=== PATIENT | female | born 1935 | race Hispanic/Latino ===

== ENCOUNTER 2017-04-19 12:52 | Emergency (ER) | payer MEDICARE ==
[2017-04-19 13:05] VITALS: BP 130/57; PULSE 87; RESP 16; TEMP 98.2; O2SAT 99
--- NOTE | 2017-04-19 14:02 | ED PDOC ---
HPI: Trauma/Fall - HPI Time Seen by Provider: 04/19/17 13:34 Chief Complaint (Nursing): Back Pain Chief Complaint (Provider): Neck Pain and Right Shoulder Pain History Per: Patient History/Exam Limitations: no limitations Onset/Duration Of Symptoms: Days (x1) Location Of Injury: Right: Shoulder Severity: None Associated Symptoms: denies: Dizziness, LOC Additional Complaint(s): 82 year old female presents to the ED post fall of right neck and right shoulder pain. The patient states that she slipped and fell causing injury to the shoulder and neck. Patient believes that tetanus is up to date. PMD: [facility] Past Medical History Reviewed: Historical Data, Nursing Documentation, Vital Signs Vital Signs: Last Vital Signs Temp 98.2 F 04/19/17 13:03 Pulse 87 04/19/17 13:03 Resp 16 04/19/17 13:03 BP 130/57 L 04/19/17 13:03 Pulse Ox 99 04/19/17 15:05 - Medical History PMH: Diabetes, HTN, Hypercholesterolemia Denies: Asthma - Surgical History Surgical History: No Surg Hx - Family History Family History: States: Unknown Family Hx - Living Arrangements Living Arrangements: With Family - Social History Current smoker - smoking cessation education provided: No Ex-Smoker (has not smoked in the last 12 months): No Alcohol: None - Immunization History Hx Tetanus Toxoid Vaccination: Yes - Home Medications Home Medications: Ambulatory Orders Medication Instructions Recorded Naproxen [Naproxen EC] 500 mg PO BID PRN #15 ect 02/18/14 Acetaminophen [Tylenol 325mg tab] 650 mg PO Q6H PRN #50 tab 12/26/15 Acetaminophen [Acetaminophen Extra 2 tab PO Q6 PRN #24 tablet 04/19/17 Strength] Bacitracin Ointment [Bacitracin] 0.5 gm TOP BID #1 tube 04/19/17 - Allergies Allergies/Adverse Reactions: Allergies Allergy/AdvReac Type Severity Reaction Status Date / Time aspirin Allergy NAUSEA Verified 04/19/17 13:03 Review of Systems Musculoskeletal: Positive for: Neck Pain (right), Shoulder Pain (right) Physical Exam - Reviewed Nursing Documentation Reviewed: Yes Vital Signs Reviewed: Yes - Physical Exam Appears: Positive for: Non-toxic, No Acute Distress Head Exam: Positive for: NORMAL INSPECTION Skin: Positive for: Normal Color, Warm, Dry. Negative for: Rash Eye Exam: Positive for: Normal appearance, EOMI, PERRL ENT: Positive for: Other (Swelling on nose with superficial laceration ) Neck: Positive for: Normal (no neck tenderness; ), Painless ROM, Supple Extremity: Positive for: Normal ROM, Tenderness (tenderness noted to right trapezius region of shoulder ), Other (no clavicular or AC join tenderness). Negative for: Deformity, Swelling Neurologic/Psych: Positive for: Alert, Oriented - ECG O2 Sat by Pulse Oximetry: 99 (RA) Pulse Ox Interpretation: Normal Medical Decision Making Medical Decision Makin Initial Impression 82 year old female presenting with right neck pain and right shoulder pain Initial Plan: * CT Head w/o Contrast * CT Orbits/Facial w/o contrast * Reevaluation 1420 PROCEDURE: CT HEAD WITHOUT CONTRAST. HISTORY: AMS COMPARISON: None available. TECHNIQUE: Axial computed tomography images were obtained through the head/brain without intravenous contrast. Radiation dose: Total exam DLP = 833.88 mGy-cm. This CT exam was performed using one or more of the following dose reduction techniques: Automated exposure control, adjustment of the mA and/or kV according to patient size, and/or use of iterative reconstruction technique. FINDINGS: HEMORRHAGE: No intracranial hemorrhage. BRAIN: No mass effect or edema. No significant atrophy. Patchy and confluent periventricular/deep and subcortical white matter lucency consistent with microvascular ischemic change. No evidence of acute infarct. VENTRICLES: Unremarkable. No hydrocephalus. CALVARIUM: Unremarkable. PARANASAL SINUSES: Unremarkable as visualized. No significant inflammatory changes. MASTOID AIR CELLS: Unremarkable as visualized. No inflammatory changes. OTHER FINDINGS: None. IMPRESSION: No intracranial mass, hemorrhage or evidence of acute infarct. Chronic white matter ischemic change. Otherwise unremarkable. 1441 PROCEDURE: CT MAXILLOFACIAL BONES WITHOUT CONTRAST HISTORY: R/O FACIAL FX COMPARISON: None TECHNIQUE: Contiguous axial CT images of the maxillofacial bones were obtained. Coronal and sagittal reformats were generated. Radiation dose: Total exam DLP = 750.02 mGy-cm. This CT exam was performed using one or more of the following dose reduction techniques: Automated exposure control, adjustment of the mA and/or kV according to patient size, and/or use of iterative reconstruction technique. FINDINGS: NASAL BONES: Nondisplaced bilateral distal nasal fracture. Anterior maxillary spine intact. . ORBITS: No fracture. No intraorbital hemorrhage. The globes are rounded and symmetric. PARANASAL SINUSES/ MASTOIDS: Clear. MAXILLA: Unremarkable. MANDIBLE/ TEMPOROMANDIBULAR JOINTS: Unremarkable. SKULL BASE: Unremarkable. TEMPORAL BONES: Middle ears and mastoid grossly unremarkable. OTHER FINDINGS: None. IMPRESSION: Nondisplaced distal nasal fracture bilaterally. Otherwise unremarkable examination. Documented by Irena Price acting as a scribe for Raphael Sawant PA-C. All medical record entries made by the Scribe were at my direction and personally dictated by me. I have reviewed the chart and agree that the record accurately reflects my personal performance of the history, physical exam, medical decision making, and the department course for this patient. I have also personally directed, reviewed, and agree with the discharge instructions and disposition. Disposition - Clinical Impression Clinical Impression: Nasal bone fx-closed, Muscle strain - Patient ED Disposition Is Patient to be Admitted: No - Disposition Referrals: [facility] [Outside] Disposition: Routine/Home Disposition Time: 15:02 Condition: FAIR Prescriptions: Acetaminophen [Acetaminophen Extra Strength] 2 tab PO Q6 PRN #24 tablet PRN Reason: Pain, Moderate (4-7) Bacitracin Ointment [Bacitracin] 0.5 gm TOP BID #1 tube Instructions: Nasal Fracture (ED), Muscle Strain (ED), Abrasion (ED) Forms: [facility] (E[place]ian), [facility] ED School/Work Excuse Print Language: SINHALA
--- NOTE | 2017-04-19 14:22 | CT ---
PROCEDURE: CT HEAD WITHOUT CONTRAST. HISTORY: AMS COMPARISON: None available. TECHNIQUE: Axial computed tomography images were obtained through the head/brain without intravenous contrast. Radiation dose: Total exam DLP = 833.88 mGy-cm. This CT exam was performed using one or more of the following dose reduction techniques: Automated exposure control, adjustment of the mA and/or kV according to patient size, and/or use of iterative reconstruction technique. FINDINGS: HEMORRHAGE: No intracranial hemorrhage. BRAIN: No mass effect or edema. No significant atrophy. Patchy and confluent periventricular/deep and subcortical white matter lucency consistent with microvascular ischemic change. No evidence of acute infarct. VENTRICLES: Unremarkable. No hydrocephalus. CALVARIUM: Unremarkable. PARANASAL SINUSES: Unremarkable as visualized. No significant inflammatory changes. MASTOID AIR CELLS: Unremarkable as visualized. No inflammatory changes. OTHER FINDINGS: None. IMPRESSION: No intracranial mass, hemorrhage or evidence of acute infarct. Chronic white matter ischemic change. Otherwise unremarkable.
--- NOTE | 2017-04-19 14:43 | CT ---
PROCEDURE: CT MAXILLOFACIAL BONES WITHOUT CONTRAST HISTORY: R/O FACIAL FX COMPARISON: None TECHNIQUE: Contiguous axial CT images of the maxillofacial bones were obtained. Coronal and sagittal reformats were generated. Radiation dose: Total exam DLP = 750.02 mGy-cm. This CT exam was performed using one or more of the following dose reduction techniques: Automated exposure control, adjustment of the mA and/or kV according to patient size, and/or use of iterative reconstruction technique. FINDINGS: NASAL BONES: Nondisplaced bilateral distal nasal fracture. Anterior maxillary spine intact. . ORBITS: No fracture. No intraorbital hemorrhage. The globes are rounded and symmetric. PARANASAL SINUSES/ MASTOIDS: Clear. MAXILLA: Unremarkable. MANDIBLE/ TEMPOROMANDIBULAR JOINTS: Unremarkable. SKULL BASE: Unremarkable. TEMPORAL BONES: Middle ears and mastoid grossly unremarkable. OTHER FINDINGS: None. IMPRESSION: Nondisplaced distal nasal fracture bilaterally. Otherwise unremarkable examination.
== END 2017-04-19 15:30 | disposition home or self-care (01) ==
LOC: H.ER 12:52
DX: M54.2 Cervicalgia (principal); S02.2XXA Fracture of nasal bones, initial encounter for closed fracture; W19.XXXA Unspecified fall, initial encounter; Y92.89 Other specified places as the place of occurrence of the external cause; E11.9 Type 2 diabetes mellitus without complications; E78.00 Pure hypercholesterolemia, unspecified; I10 Essential (primary) hypertension